=== PATIENT | male | born 1960 | race Caucasian/White ===

== ENCOUNTER 2019-10-15 23:10 | Observation (INO) | payer BC ==
[2019-10-15] MEDS ORDERED: Sodium Chloride 0.9% 10 ML Syringe FLUSH PRN (23:28)
--- NOTE | 2019-10-15 23:59 | EDM.PDOC ---
ED HPI GENERAL MEDICAL PROBLEM - General Chief Complaint: General Stated Complaint: syncopal episodes Time Seen by Provider: 10/15/19 23:10 Source of Information: Reports: Patient, EMS History Limitations: Reports: No Limitations - History of Present Illness INITIAL COMMENTS - FREE TEXT/NARRATIVE: in with c/o was eating supper ans had a brief episode of syncope, he advised he felt as if he was going to pass out and told his friend that he was with just before it happened, unsure of palpitations or irregular heart beat. denied any ROBISON, no calf pain/swelling or redness. Onset: Today, Sudden Duration: Hour(s): Location: Reports: Other (denies pain) Severity: Moderate Improves with: Reports: None Worsens with: Reports: None Associated Symptoms: Reports: Syncope, Weakness. 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 (see below) (none) - Related Data Allergies Allergy/AdvReac Type Severity Reaction Status Date / Time codeine Allergy Confusion Verified 10/15/19 23:38 Home Meds: Home Meds Ibuprofen [Advil] 200 mg PO ASDIRECTED 10/15/19 [History] Past Medical History HEENT History: Reports: None Cardiovascular History: Reports: None Respiratory History: Reports: None Gastrointestinal History: Reports: None Genitourinary History: Reports: None Musculoskeletal History: Reports: None Neurological History: Reports: None Psychiatric History: Reports: None Endocrine/Metabolic History: Reports: None Hematologic History: Reports: None Immunologic History: Reports: None Oncologic (Cancer) History: Reports: None Dermatologic History: Reports: None - Infectious Disease History Infectious Disease History: Reports: Chicken Pox, Measles - Past Surgical History Head Surgeries/Procedures: Reports: None Social & Family History - Tobacco Use Smoking Status *Q: Never Smoker - Caffeine Use Caffeine Use: Reports: Coffee - Recreational Drug Use Recreational Drug Use: No ED ROS GENERAL - Review of Systems Review Of Systems: See Below Constitutional: Reports: No Symptoms. Denies: Fever, Chills HEENT: Reports: No Symptoms Respiratory: Reports: No Symptoms. Denies: Shortness of Breath Cardiovascular: Reports: Syncope. Denies: Chest Pain, Palpitations Endocrine: Reports: No Symptoms GI/Abdominal: Reports: No Symptoms. Denies: Abdominal Pain, Nausea, Vomiting : Reports: No Symptoms Musculoskeletal: Reports: No Symptoms Skin: Reports: No Symptoms Neurological: Reports: No Symptoms. Denies: Dizziness, Headache, Weakness Psychiatric: Reports: No Symptoms ED EXAM, GENERAL - Physical Exam Exam: See Below Exam Limited By: No Limitations General Appearance: Alert, WD/WN, No Apparent Distress Ears: Normal External Exam Nose: Normal Inspection Throat/Mouth: Normal Inspection, Normal Lips, Normal Oropharynx, Normal Voice, No Airway Compromise Head: Atraumatic, Normocephalic Neck: Normal Inspection, Supple, Non-Tender, Full Range of Motion Respiratory/Chest: No Respiratory Distress, Lungs Clear, Normal Breath Sounds, Chest Non-Tender Cardiovascular: Normal Peripheral Pulses, Regular Rate, Rhythm, No Edema, No Murmur Peripheral Pulses: 2+: Radial (L), Radial (R) GI/Abdominal: Soft, Non-Tender, Other (obese) Back Exam: Normal Inspection, Full Range of Motion Extremities: Normal Inspection, Normal Range of Motion, Non-Tender, No Pedal Edema, Normal Capillary Refill Neurological: Alert, Oriented, CN II-XII Intact, Normal Cognition, Normal Gait, No Motor/Sensory Deficits Psychiatric: Normal Affect, Normal Mood Skin Exam: Warm, Dry, Intact, Normal Color EKG INTERPRETATION EKG Date: 10/16/19 Time: 23:24 Rhythm: NSR Rate (Beats/Min): 92 [place]: Normal P-Wave: Present QRS: Normal ST-T: Normal QT: Normal EKG Interpretation Comments: SR with a Vent rate of 92, some 60 cycle interference, no injury or ischemia Course - Vital Signs Last Recorded V/S: Last Vital Signs Temp 37.2 C 10/15/19 23:17 Pulse 93 10/15/19 23:17 Resp 18 10/15/19 23:17 BP 113/73 10/15/19 23:17 Pulse Ox 95 10/15/19 23:17 - Orders/Labs/Meds Orders: Active Orders 24 hr Category Date Time Status CXR [Chest 2V] [CR] Stat Exams 10/15/19 23:25 Taken Sodium Chloride 0.9% [Saline Flush] Med 10/15/19 23:28 Active 10 ml FLUSH ASDIRECTED PRN Saline Lock Insert [OM.PC] Routine Oth 10/15/19 23:28 Ordered Medication Orders Sodium Chloride (Saline Flush) 10 ml FLUSH ASDIRECTED PRN PRN Reason: Keep Vein Open Labs: Laboratory Tests 10/15/19 10/15/19 Range/Units 23:40 23:40 WBC 11.8 H (5.0-10.0) 10^3/uL RBC 4.25 L (4.50-6.00) 10^6/uL Hgb 13.9 L (14.0-18.0) g/dL Hct 40.3 (40.0-54.0) % MCV 94.8 H (82.0-94.0) fL MCH 32.7 H (27.0-32.0) pg MCHC 34.5 (33.0-38.0) g/dL RDW Coeff of [place] 11.9 (11.0-15.0) % Plt Count 272 (150-400) 10^3/uL Neut % (Auto) 79.6 (35-85) % Lymph % (Auto) 12.3 (10-55) % [place] % (Auto) 7.6 (0-16) % Eos % (Auto) 0.3 (0-5) % Baso % (Auto) 0.2 (0-3) % Neut # (Auto) 9.37 H (1.80-7.00) 10^3/uL Lymph # (Auto) 1.45 (1.00-4.80) 10^3/uL [place] # (Auto) 0.90 H (0.00-0.80) 10^3/uL Eos # (Auto) 0.04 (0.00-0.45) 10^3/uL Baso # (Auto) 0.02 10^3/uL Sodium 137 (136-145) mEq/L Potassium 4.2 (3.5-5.0) mEq/L Chloride 100 (98-106) mEq/L Carbon Dioxide 26 (21-32) mmol/L BUN 26 H (7-18) mg/dL Creatinine 1.7 H (0.7-1.3) mg/dL Est Cr Clr Drug Dosing 46.21 mL/min Estimated GFR (MDRD) 41 L (>=60) mL/min Glucose 100 H (75-99) mg/dL Calcium 8.5 (8.4-10.1) mg/dL Total Bilirubin 1.1 H (0.0-1.0) mg/dL AST 25 (15-37) U/L ALT 47 (12-78) U/L Alkaline Phosphatase 61 (46-116) U/L Creatine Kinase 182 (35-232) U/L Troponin I < 0.017 (0.00-0.06) ng/mL Total Protein 7.9 (6.4-8.2) g/dL Albumin 4.2 (3.4-5.0) g/dL Meds: Medications Generic Name Dose Route Start Last Admin Trade Name Freq PRN Reason Stop Dose Admin Sodium Chloride 10 ml 10/15/19 23:28 Saline Flush FLUSH ASDIRECTED PRN Keep Vein Open - Radiology Interpretation Free Text/Narrative:: cxr neg, awaiting radiology report Departure - Departure Time of Disposition: 00:19 Disposition: Admitted As Inpatient 64 Condition: Good Clinical Impression: Syncope, Renal insufficiency - Discharge Information *PRESCRIPTION DRUG MONITORING PROGRAM REVIEWED*: Not Applicable *COPY OF PRESCRIPTION DRUG MONITORING REPORT IN PATIENT LYNETTE: Not Applicable Referrals: PCP,None [Primary Care Provider] - Forms: ED Department Discharge - Problem List & Annotations (1) Renal insufficiency SNOMED Code(s): 560689873, 495892983 Code(s): N28.9 - DISORDER OF KIDNEY AND URETER, UNSPECIFIED Status: Acute Priority: Medium Current Visit: Yes (2) Syncope SNOMED Code(s): 533665835 Code(s): R55 - SYNCOPE AND COLLAPSE Status: Acute Priority: High Current Visit: Yes Qualifiers: Syncope type: unspecified Qualified Code(s): R55 - Syncope and collapse - Problem List Review Problem List Initiated/Reviewed/Updated: Yes - My Orders Last 24 Hours: My Active Orders 10/15/19 23:25 CXR [Chest 2V] [CR] Stat 10/15/19 23:28 Sodium Chloride 0.9% [Saline Flush] 10 ml FLUSH ASDIRECTED PRN Saline Lock Insert [OM.PC] Routine - Assessment/Plan Admission H&P: Please use this note as an admission H&P Last 24 Hours: My Active Orders 10/15/19 23:25 CXR [Chest 2V] [CR] Stat 10/15/19 23:28 Sodium Chloride 0.9% [Saline Flush] 10 ml FLUSH ASDIRECTED PRN Saline Lock Insert [OM.PC] Routine Plan: will admit to observation, will give pt NS at 100ml hr, CE routine and repeat 12 led EKG and blood work in am, discussed this with the pt and he agrees. disposition will be based on ne data and assessments
[2019-10-16 00:05] LABS: CHLORIDE,CL 100 mEq/L (98-106); SODIUM,NA 137 mEq/L (136-145)
[2019-10-16] MEDS ORDERED: Enoxaparin 40 MG/0.4 ML Syringe SUBCUT SCH (00:30)
[2019-10-16] MEDS ORDERED: Ibuprofen 200 MG Tab PO SCH (00:45)
[2019-10-16] MEDS ORDERED: Ibuprofen 200 MG Tab PO PRN (01:14)
[2019-10-16] MEDS: Sodium Chloride 0.9% 1,000 ML IV ONE (01:23)
[2019-10-16] MEDS: Enoxaparin 40 MG/0.4 ML Syringe SUBCUT SCH (01:24)
[2019-10-16] MEDS: Sodium Chloride 0.9% 1,000 ML IV SCH (02:45)
[2019-10-16 08:29] VITALS: BP 127/54; PULSE 74
--- NOTE | 2019-10-16 10:09 | PCM.DCSUM1 ---
Discharge Summary - Hospital Course HPI Initial Comments: pt presented with syncope x 2 and was observed overnight, his repeat EKG and trop are normal, the pts bun/creat was slightly elevated, however, the pt advised he had not had much to drink over the previous 24 hours, he was given a bolus of NS and the a drip at 100ml/hr, this morning he advised he slept well and feels great. Diagnosis: Stroke: No Modified [place] Scale: No Symptoms at All Modified [place] Scale Score: 0 - Discharge Data Discharge Date: 10/16/19 Discharge Disposition: Home, Self-Care 01 Condition: Good - Referral to Home Health Primary Care Physician: PCP None - Discharge Diagnosis/Problem(s) (1) Renal insufficiency SNOMED Code(s): 225893220, 262430955 ICD Code: N28.9 - DISORDER OF KIDNEY AND URETER, UNSPECIFIED Status: Acute Priority: Medium Current Visit: Yes (2) Syncope SNOMED Code(s): 115642478 ICD Code: R55 - SYNCOPE AND COLLAPSE Status: Acute Priority: High Current Visit: Yes Qualifiers: Syncope type: unspecified Qualified Code(s): R55 - Syncope and collapse - Patient Instructions Diet: Heart Healthy Diet Activity: As Tolerated Driving: May Drive Today Showering/Bathing: May Shower - Discharge Plan *PRESCRIPTION DRUG MONITORING PROGRAM REVIEWED*: Not Applicable *COPY OF PRESCRIPTION DRUG MONITORING REPORT IN PATIENT LYNETTE: Not Applicable Home Medications: Home Meds Ibuprofen [Advil] 200 mg PO ASDIRECTED 10/15/19 [History] Oxygen Therapy Mode: Room Air Patient Handouts: Syncope, [id number] Forms: ED Department Discharge Referrals: PCP,None [Primary Care Provider] - - Discharge Summary/Plan Comment DC Time >30 min.: No Discharge Summary/Plan Comment: will dc home, is advised to increase fluids and f/u with pcp this week for further evaluation and treatment, he is to return to the ER sooner if worse or problems - Patient Data Vitals - Most Recent: Last Vital Signs Temp 36.4 C 10/16/19 08:00 Pulse 74 10/16/19 08:00 Resp 18 10/16/19 08:00 BP 127/54 L 10/16/19 08:00 Pulse Ox 96 10/16/19 08:00 Weight - Most Recent: 112.99 kg I&O - Last 24 hours: Intake & Output 10/15/19 10/16/19 10/16/19 22:59 06:59 14:59 Intake Total 50 Balance 50 Lab Results - Last 24 hrs: Laboratory Results - last 24 hr 10/15/19 10/15/19 10/16/19 Range/Units 23:40 23:40 06:00 WBC 11.8 H (5.0-10.0) 10^3/uL RBC 4.25 L (4.50-6.00) 10^6/uL Hgb 13.9 L (14.0-18.0) g/dL Hct 40.3 (40.0-54.0) % MCV 94.8 H (82.0-94.0) fL MCH 32.7 H (27.0-32.0) pg MCHC 34.5 (33.0-38.0) g/dL RDW Coeff of [place] 11.9 (11.0-15.0) % Plt Count 272 (150-400) 10^3/uL Neut % (Auto) 79.6 (35-85) % Lymph % (Auto) 12.3 (10-55) % [place] % (Auto) 7.6 (0-16) % Eos % (Auto) 0.3 (0-5) % Baso % (Auto) 0.2 (0-3) % Neut # (Auto) 9.37 H (1.80-7.00) 10^3/uL Lymph # (Auto) 1.45 (1.00-4.80) 10^3/uL [place] # (Auto) 0.90 H (0.00-0.80) 10^3/uL Eos # (Auto) 0.04 (0.00-0.45) 10^3/uL Baso # (Auto) 0.02 10^3/uL Sodium 137 (136-145) mEq/L Potassium 4.2 (3.5-5.0) mEq/L Chloride 100 (98-106) mEq/L Carbon Dioxide 26 (21-32) mmol/L BUN 26 H (7-18) mg/dL Creatinine 1.7 H (0.7-1.3) mg/dL Est Cr Clr Drug Dosing 46.21 mL/min Estimated GFR (MDRD) 41 L (>=60) mL/min Glucose 100 H (75-99) mg/dL Calcium 8.5 (8.4-10.1) mg/dL Total Bilirubin 1.1 H (0.0-1.0) mg/dL AST 25 (15-37) U/L ALT 47 (12-78) U/L Alkaline Phosphatase 61 (46-116) U/L Creatine Kinase 182 (35-232) U/L Troponin I < 0.017 < 0.017 (0.00-0.06) ng/mL Total Protein 7.9 (6.4-8.2) g/dL Albumin 4.2 (3.4-5.0) g/dL Med Orders - Current: Current Medications Enoxaparin Sodium (Lovenox) 40 mg SUBCUT BEDTIME [facility] Last Admin: 10/16/19 01:24 Dose: 40 mg Sodium Chloride (Normal Saline) 1,000 mls @ 100 mls/hr IV ASDIRECTED [facility] Last Admin: 10/16/19 02:45 Dose: 100 mls/hr Ibuprofen (Motrin) 200 mg PO Q6H PRN PRN Reason: Pain/Fever Sodium Chloride (Saline Flush) 10 ml FLUSH ASDIRECTED PRN PRN Reason: Keep Vein Open Discontinued Medications Sodium Chloride (Normal Saline) 1,000 mls @ 1,000 mls/hr IV .BOLUS ONE Stop: 10/16/19 01:30 Last Admin: 10/16/19 01:23 Dose: 1,000 mls/hr
== END 2019-10-16 10:35 | disposition home or self-care (01) ==
LOC: CC.ED 23:10 → CC.MS 10-16 00:25 → CC.ED 10-16 00:30 → CC.MS 10-16 01:03 → UNDOADMOB 10-16 01:03 → CC.MS 10-16 01:05 → UNDODISOB 10-16 10:35
PROVIDERS: ADMIT Nurse Practitioner; ATTEND Family Medicine
DX: R55 Syncope and collapse (principal); N28.9 Disorder of kidney and ureter, unspecified; Z88.5 Allergy status to narcotic agent
CPT/HCPCS: 36415; 71046; 80053; 82550; 84484; 85025; 93005; 96361; 96372; 99285-25; G0378; J1650; J7030